=== PATIENT | female | born 1980 | race Caucasian/White ===

== ENCOUNTER 2023-12-09 12:56 | Outpatient (CLI) | payer OTHER, SELFPAY ==
--- NOTE | 2023-12-09 13:00 | MM_ITS ---
WS: [id number] BILATERAL 3D TOMOSYNTHESIS DIGITAL SCREENING MAMMOGRAPHY WITH CAD CLINICAL INFORMATION: SCREENING HISTORY: Screening mammogram. No current complaints. COMPARISON: 2022 TECHNIQUE: Bilateral CC and MLO views. FINDINGS: Scattered fibroglandular densities bilaterally. No suspicious focal mass, asymmetry, calcifications, or architectural distortion. No evidence of malignancy. MM/[place] [id number] IMPRESSION: BI-RADS: 1-Negative FOLLOW UP: 1 Year Follow-up Recommend return to annual screening mammography.
== END 2023-12-09 12:57 | disposition home or self-care (01) ==
LOC: MOBLMAM 13:03
PROVIDERS: PCP Student in an Organized Health Care Education/Training Program; Visit Provider Student in an Organized Health Care Education/Training Program
DX: Z12.31 Encounter for screening mammogram for malignant neoplasm of breast (principal); R92.323 Mammographic fibroglandular density, bilateral breasts
CPT/HCPCS: 77063; 77067

== ENCOUNTER 2025-03-16 13:17 | Outpatient (CLI) | payer BC, SELFPAY ==
--- NOTE | 2025-03-16 13:20 | MM_ITS ---
WS: [id number] SCREENING DIGITAL BREAST TOMOSYNTHESIS MAMMOGRAM WITH CAD HISTORY: SCREENING COMPARISON: 06/21/2018, 06/18/2018, 08/24/2019, 12/09/2023 Bilateral CC and MLO with tomosynthesis and synthetic mammography submitted. Computer aided detection analyzed. Breast composition: There are scattered areas of fibroglandular density. Well- circumscribed round mass in the medial RIGHT breast anterior depth near 1-2 o'clock measures 5 x 5 x 6 mm. This mass was also present in 2018 but has increased in density over time. This was noted to be a cyst on a prior ultr asound from 2018. Due to increasing density follow-up recommended. No additional abnormalities. MM/MM scr BI tomosynthesis [id number] IMPRESSION: BI-RADS: 0 - Incomplete: Need additional imaging evaluation. FOLLOW UP: Need Additional Imaging Recommendation: RIGHT breast ultrasound, limited, upper outer quadrant RIGHT br east near 1-2 o'clock.
== END 2025-03-16 13:18 | disposition home or self-care (01) ==
PROVIDERS: PCP Student in an Organized Health Care Education/Training Program; Visit Provider Student in an Organized Health Care Education/Training Program
DX: Z12.31 Encounter for screening mammogram for malignant neoplasm of breast (principal); R92.323 Mammographic fibroglandular density, bilateral breasts; N63.10 Unspecified lump in the right breast, unspecified quadrant; N63.11 Unspecified lump in the right breast, upper outer quadrant
CPT/HCPCS: 77063; 77067